=== PATIENT | female | born 1960 | race Hispanic/Latino ===

== ENCOUNTER 2023-03-21 11:02 | Emergency (ER) | payer OTHER, BC ==
[2023-03-21] MEDS ORDERED: Morphine 4 MG/ML VIAL ONE (12:07)
[2023-03-21] MEDS ORDERED: Ketorolac Tromethamine 30 MG/ML VIAL ONE (12:07)
[2023-03-21] MEDS ORDERED: Morphine 2 MG/ML VIAL ONE (12:08)
[2023-03-21] MEDS ORDERED: Ondansetron ODT 4 MG TAB ONE (13:28)
== END 2023-03-21 14:40 | disposition home or self-care (01) ==
LOC: CSHERS 11:02
DX: S83.92XA Sprain of unspecified site of left knee, initial encounter (principal); M54.32 Sciatica, left side; W18.30XA Fall on same level, unspecified, initial encounter; Y92.89 Other specified places as the place of occurrence of the external cause
CPT/HCPCS: 72100; 96372; J1885; J2270; J2272; Q0162